=== PATIENT | male | born 1990 | race Caucasian/White ===

== ENCOUNTER 2019-01-24 09:43 | Emergency (ER) | payer OTHER ==
[~2019-01-24] VITALS: Ht 160 cm; Wt 68.0 kg
[2019-01-24] MEDS ORDERED: LORAZEPAM 2 MG INJ IV STA (09:47)
[2019-01-24] MEDS ORDERED: MAGNESIUM SULFATE 2 GM, MULTIVITAMINS 10 ML, THIAMINE 100 MG, FOLIC ACID 1 MG in SOD CH... IV STA (09:47)
[2019-01-24 09:48] VITALS: Ht 160 cm; Wt 68.0 kg
--- NOTE | 2019-01-24 11:12 | ERD ---
ER Documentation Chief Complaint Chief Complaint ETOH states needs to detox HPI This is a 28-year-old male that presents to the emergency department stating that he has been drinking a significant amount of alcohol on a daily basis. He states his last consumption of alcohol was roughly 12 hours prior to arrival. He states he is feeling very anxious and shaky. He denies any blunt or penetrating head chest or abdominal trauma. He denies any hemoptysis hematemesis or melanotic stools. He denies any previous history of withdrawal seizures. He denies any other illicit drug use. ROS All systems reviewed and are negative except as per history of present illness. PMhx/Soc Medical and Surgical Hx: pt denies Medical Hx, pt denies Surgical Hx Hx Alcohol Use: Yes Hx Tobacco Use: Yes Smoking Status: Current every day smoker Physical Exam Vitals Vital Signs Date Temp Pulse Resp B/P (MAP) Pulse Ox O2 O2 Flow FiO2 Time Delivery Rate 01/24/19 99 18 110/68 98 Room Air 11:48 (82) 01/24/19 98.1 80 18 134/72 99 09:48 (92) Physical Exam Constitutional:Well-developed. Well-nourished. HEENT:Normocephalic. Atraumatic.Pupils were equal round reactive to light. Dry mucous membranes.No tonsillar exudates. Neck: No nuchal rigidity. No lymphadenopathy. No posterior cervical spine tenderness or step-offs. Respiratory: Not using accessory muscles of respiration.Lungs were clear to auscultation bilaterally. No rhonchi. No rales. No wheezing. Cardiovascular: Regular rate regular rhythm.No murmurs. No rubs were appreciated.S1, S2 normal. Distal pulses are palpable 2+ bilaterally. GI: Abdomen was soft. Nontender. Non Distended. No pulsatile abdominal masses or bruits. No rebound. No guarding. Bowel sounds were present and normal. Muscle skeletal: Full range of motion of both the upper and lower extremities bilaterally.Normal muscle tone.No assymetrical calf tenderness or swelling. Skin: No petechia, no purpura. No lesions on the palms or the soles of the feet. No maculopapular rash. NEURO: Patient was alert, awake, orientated x3.No facial droop. Gait observed and normal with no ataxia.Speech had regular rate and rhythm. No focal neurological deficits. [employer]. Result Diagram: 01/24/19 1015 01/24/19 1015 Results 24 hrs Laboratory Tests Test 01/24/19 10:15 White Blood Count 5.7 10^3/ul Red Blood Count 5.09 10^6/ul Hemoglobin 8.6 g/dl Hematocrit 31.3 % Mean Corpuscular Volume 61.5 fl Mean Corpuscular Hemoglobin 16.9 pg Mean Corpuscular Hemoglobin Concent 27.5 g/dl Red Cell Distribution Width 20.5 % Platelet Count 252 10^3/UL Mean Platelet Volume 10.3 fl Immature Granulocytes % 0.300 % Neutrophils % 44.0 % Lymphocytes % 48.1 % Monocytes % 6.1 % Eosinophils % 0.5 % Basophils % 1.0 % Nucleated Red Blood Cells % 0.0 /100WBC Immature Granulocytes # 0.020 10^3/ul Neutrophils # 2.5 10^3/ul Lymphocytes # 2.8 10^3/ul Monocytes # 0.4 10^3/ul Eosinophils # 0.0 10^3/ul Basophils # 0.1 10^3/ul Nucleated Red Blood Cells # 0.0 10^3/ul Prothrombin Time 14.7 Sec Prothrombin Time Ratio 1.1 INR International Normalized Ratio 1.14 Activated Partial Thromboplast Time 33.9 Sec Sodium Level 145 mmol/L Potassium Level 3.5 mmol/L Chloride Level 104 mmol/L Carbon Dioxide Level 26 mmol/L Anion Gap 15 Blood Urea Nitrogen 6 mg/dl Creatinine 0.66 mg/dl Est Glomerular Filtrat Rate mL/min > 60 mL/min Glucose Level 99 mg/dl Calcium Level 9.2 mg/dl Total Bilirubin 0.7 mg/dl Direct Bilirubin 0.00 mg/dl Indirect Bilirubin 0.7 mg/dl Aspartate Amino Transf (AST/SGOT) 281 IU/L Alanine Aminotransferase (ALT/SGPT) 194 IU/L Alkaline Phosphatase 209 IU/L Total Protein 8.1 g/dl Albumin 4.7 g/dl Globulin 3.40 g/dl Albumin/Globulin Ratio 1.38 Salicylates Level < 1.0 mg/dl Acetaminophen Level < 10.0 ug/ml Ethyl Alcohol Level 266.0 mg/dl Current Medications Medications Dose Sig/Fidelia Start Time Status Last (Trade) Ordered Route PRN Stop Time Admin Dose Reason Admin Magnesium 1,015.2 ml Q2H2M STAT 01/24/19 DC 01/24/19 Sulfate 2 @ 500 mls/ IV 09:47 10:31 gm/ hr 01/24/19 11:48 Multivitamins 10 ml/Thiamine HCl 100 mg/Folic Acid 1 mg/Sodium Chloride Lorazepam 1 mg ONCE STAT 01/24/19 DC 01/24/19 (Ativan) IV 09:47 10:18 01/24/19 09:49 Procedures/MDM This is 28-year-old male that presented to the emergency department with signs of mild alcohol withdrawal. His serum ethanol was elevated at 266 however states he has a history of alcoholism did not appear to be clinically intoxicated. He received IV Ativan to improve his withdrawal symptoms. He also received a banana bag which included folic acid thiamine and a multivitamin. The patient had no severe electrolyte abnormalities other than transaminitis thought to be secondary to his alcoholism. 12 Lead EKG tracing ordered and reviewed by myself showed: Normal sinus rhythm of 83 bpm and no arrhythmia. FL interval normal. QRS duration normal. No ST segment elevation No ST segment depression. No changes consistent with acute ischemia. Observation Note: Time: 4 hours Family Hx: No Hypertension Evaluation: Multiple exams showed improving symptoms and no evidence of impending delirium tremors. The patient was given outpatient resources for alcohol detoxification. The patient was discharged home in fair condition. They were instructed to return to the emergency department at any time if there was any worsening of their condition. The patient stated they would follow up with their PCP in the next 24-48 hours to initiate a suitable medication regimen under the care of their PCP as well as to allow their PCP to monitor any drug reactions. The patient was discharged home with prescriptions after they gave informed consent to the new medication. They were also fully informed by myself on the adverse effects and adverse drug interactions in order to provide adequate safeguards to prevent possible adverse reactions to medications. Departure Diagnosis: Primary Impression: Alcohol withdrawal Complication of substance-induced condition: uncomplicated Qualified Codes: F10.230 - Alcohol dependence with withdrawal, uncomplicated Condition: YULISSA Tom MD January 24, 2019 11:11
[2019-01-24 11:48] VITALS: BP 110/68; PULSE 99; RESP 18
== END 2019-01-24 17:47 | disposition home or self-care (01) ==
LOC: E/R 09:43
DX: F10.230 Alcohol dependence with withdrawal, uncomplicated (principal); F17.210 Nicotine dependence, cigarettes, uncomplicated
CPT/HCPCS: 80053; 80307; 85025; 85610; 85730; 93005; 96374; 96375; J2060; J3411; J3475; J7030; Z7502; Z7610